=== PATIENT | female | born 1980 | race Caucasian/White ===

== ENCOUNTER 2016-10-27 05:30 | Inpatient (IN) | payer MEDICAID ==
[~2016-10-27] VITALS: Ht 154.9 cm; Wt 71.0 kg
[2016-10-27 05:45] VITALS: Ht 154.9 cm; Wt 71.0 kg
[2016-10-27] MEDS ORDERED: PRENAT PO (05:45)
[2016-10-27 05:46] VITALS: BP 112/71; PULSE 63; RESP 18
[2016-10-27] MEDS ORDERED: MISOPROSTOL 200 MCG TAB PR PRN ×2 (06:00→13:00)
[2016-10-27] MEDS ORDERED: CEFAZOLIN 2 GM/50 ML (PMX) 50 ML IV SCH (06:00)
[2016-10-27] MEDS ORDERED: OXYTOCIN 30 UNITS/LR 500 ML IV PRN ×2 (06:00→13:00)
[2016-10-27] MEDS ORDERED: OXYTOCIN 30 UNITS/LR 500 ML IV SCH (06:00)
[2016-10-27] MEDS ORDERED: METHYLERGONOVINE 0.2 MG INJ IM PRN ×2 (06:00→13:00)
[2016-10-27] MEDS ORDERED: CARBOPROST 250 MCG INJ IM PRN ×2 (06:00→13:00)
[2016-10-27] MEDS: LACTATED RINGER'S 1,000 ML IV SCH ×2 (06:08→07:58)
[2016-10-27 06:23] LABS: ADD SCAN DIFF NO
[2016-10-27 06:29] LABS: BASOPHIL # 0.1 10^3/ul (0.0-0.1); BASOPHILS % 0.5 % (0.0-2.0); EOSINOPHILS # 0.9 10^3/ul (0.0-0.5); EOSINOPHILS % 9.6 % (0.0-7.0); HEMATOCRIT 39.2 % (37.0-47.0); LYMPHOCYTES # 2.3 10^3/ul (0.8-2.9); MEAN CORPUSCULAR HEMOGLOBIN 32.6 pg (29.0-33.0); MEAN CORPUSCULAR HGB CONC 35.7 g/dl (32.0-37.0); MEAN CORPUSCULAR VOLUME 91.4 fl (82.0-101.0); MEAN PLATELET VOLUME 10.8 fl (7.4-10.4); MONOCYTE # 0.7 10^3/ul (0.3-0.9); MONOCYTES % 7.1 % (0.0-11.0); NEUTROPHIL # 5.6 10^3/ul (1.6-7.5); NEUTROPHILS % 58.3 % (39.0-77.0); PLATELET COUNT 182 10^3/UL (140-415); RED BLOOD COUNT 4.29 10^6/ul (4.20-5.40); RED CELL DISTRIBUTION WIDTH 13.5 % (11.5-14.5); WHITE BLOOD COUNT 9.6 10^3/ul (4.8-10.8)
[2016-10-27] MEDS ORDERED: OXYTOCIN 30 UNITS/LR 500 ML BAG IV ONE (07:00)
[2016-10-27 07:15] LABS: INR 0.88; PROTIME 11.9 Sec (12.2-14.2); PT RATIO 0.9
[2016-10-27 07:16] LABS: PARTIAL THROMBOPLASTIN TIME 24.9 Sec (25.0-35.0)
[2016-10-27] MEDS ORDERED: morphine SULFATE/PF (10 MG/10 ML) INJ ONE (08:06)
[2016-10-27] MEDS ORDERED: PHENYLephrine (100 MCG/ML) 5ML SYG ONE (08:14)
[2016-10-27] MEDS ORDERED: EPHEDrine SULFATE 50 MG/5 ML SYG ONE (08:18)
--- NOTE | 2016-10-27 08:20 | HP ---
Date/Time of Note Date/Time of Note DATE: 10/27/16 TIME: 08:11 OB - History Hx of Present Free Text/Dictation 36 years old female 5 para 3 history of 2 previous normal delivery 1 section EDC November 03, 2016 admitted to [facility] at 39 weeks gestation for repeat section patient had requested voluntary sterilization bilateral tubal ligation at the time of section she has been counseled regarding the failure rate of this procedure increased risk of ectopic future failure to conceive also the complication of the has been discussed with the patient including but not limited to bowel and bladder injury infection hemorrhage wound hematoma she would like to proceed with the operation Chief Complaint: 39 weeks history of previous request for BTL Estimated Due Date: Nov 03, 2016 : 5 Para: 3 Spontaneous : 1 Care: Limited Care Ultrasounds: Normal mid trimester US Obstetrical Complications: None Medical Complications: None Past Family/Social History * Past Medical, Surgical, Family and Obstetric Histories reviewed from chart. Rubella: immune RPR/VDRL: Negative GBS Status: Negative HBsAG: Negative OB Admission Exam Vital Signs Vital Signs Vital Signs Date Time Temp Pulse Resp B/P Pulse Ox O2 Delivery O2 Flow Rate FiO2 10/27/16 05:46 98.2 63 18 112/71 Room Air Physical Exam HEENT: WNL Heart: Rhythm Normal Lungs: Clear, Equal Abdomen: WNL Extremities: Normal Reflexes: Normal Cervical Dilatation: None Heart Rate: 130's Accelerations: Accelerations Present Decelerations: No Decelerations Varibility: Moderate Last 72 hours Lab Results CBC & BMP 10/27/16 06:00 OB Assessment/Plan Reason for admission: other (Repeat bilateral tubal ligation) Plan: Other (Repeat bilateral tubal ligation) JOAN PAYAN MD Oct 27, 2016 08:20
[2016-10-27] MEDS ORDERED: FENTAnyl 50 MCG/ML VIAL IV PRN ×2 (09:00)
[2016-10-27] MEDS ORDERED: MEPERIDINE 25 MG INJ IV PRN (09:00)
[2016-10-27] MEDS ORDERED: KETOROLAC 30 MG INJ IV ONE (09:00)
[2016-10-27] MEDS ORDERED: NALOXONE (0.4 MG/ML) INJ IV PRN (09:00)
[2016-10-27] MEDS ORDERED: HYDROmorphONE 1 MG/ML SYG IV PRN ×2 (09:00)
[2016-10-27] MEDS ORDERED: ONDANSETRON 4 MG INJ IV PRN ×2 (09:00)
[2016-10-27] MEDS ORDERED: DIPHENHYDRAMINE 50 MG INJ IV PRN ×2 (09:00)
[2016-10-27] MEDS ORDERED: METOCLOPRAMIDE 10 MG INJ IV PRN (09:00)
[2016-10-27] MEDS ORDERED: PROCHLORPERAZINE 10 MG INJ IV PRN (09:00)
[2016-10-27] MEDS ORDERED: HYDROmorphONE (0.2 MG/ML) 10ML SYG IV PRN ×3 (09:00)
[2016-10-27] MEDS ORDERED: ONDANSETRON 4 MG INJ ONE (09:03)
[2016-10-27 12:48] VITALS: BP 121/77; PULSE 90; RESP 20
--- NOTE | 2016-10-27 12:55 | OPR ---
Operative Report Planned Procedure Free Text/Dictation Preop diagnosis repeat request for voluntary sterilization bilateral tubal ligation Postop diagnosis the same Procedure date Oct 27, 2016 Procedure(s) Repeat bilateral tubal ligation Performed by: JOAN PAYAN MD Assisting provider: JERSON ASHLEY MD Anesthesiologist: RAFFAELE DWYER Pre-procedure diagnosis 39 weeks previous C-sections request for tubal ligation Anesthesia Type: spinal Procedure Description Under satisfactory spinal anesthesia, the patient was prepped and draped and placed in supine position, tilted to the left. Pfannenstiel incision was made, carried through the subcutaneous tissue. Bleeders brought under control with electrocautery. Fascia incised to the length of the incision. Rectus muscles from the fascia, divided in midline. Peritoneum exposed, entered through a transverse incision. Exploration of abdomen revealed gravid uterus. Normal-appearing tubes and ovaries bladder flap was developed. Transverse incision was made in the lower segment of the uterus. Amniotic sac ruptured. clear amniotic fluid noted live baby girl was delivered from LOP position, Nasal oropharyngeal suction was performed. The baby was handed to the team for immediate attention. The placenta was delivered manually intact. Uterine cavity was cleaned with wet sponge and drainage established. Uterus closed in 2 layers using [] Monocryl 1 in continuous fashion bilateral tubal ligation performed by identifying the fimbria and ampullar section of the right fallopian tube suture material used number 0 plain catgut which was reinforced with the same suture material that portion of the tube was excised cut end of the tube was cauterized the same procedure performed for the opposite side and specimen submitted. To the pathology, peritoneal cavity irrigated with warm saline. Sponge, needle and instrument count reported to be correct. Abdominal peritoneum closed with 2-0 chromic catgut continuously. Rectus muscle approximated with interrupted 2-0 chromic catgut fascia closed with #1 PDS subcutaneous tissue approximated and sutured with interrupted 2-0 chromic catgut , skin closed with kenny. Estimated blood loss 600 mL. Urine bag contained [ 200]mL of clear urine. Post-Procedure Findings: Live Baby girl [], Apgars 9 [] and [9], weight [], position [cephalic], [vertex ] presentation [no nuchal cord]cord. Specimen removed: No Complications: None Pt Condition post procedure: stable Physician Certification I, the undersigned physician, hereby certify that I have discussed the procedure described in this consent form with this patient (or the patient's legal education courses sales representative), including: * The risk and benefits of the procedure; * Any adverse reactions that may reasonably be expected to occur; * Any alternative efficacious methods of treatment which may be medically viable ; * The potential problems that may occur during recuperation; * Potential for blood transfusion and associated risks/benefits; and * Any research or economic interest I may have regarding this treatment. I further certify that the patient/legally responsible person was encouraged to ask question and that all questions were answered. JOAN PAYAN MD Oct 27, 2016 12:49
[2016-10-27] MEDS ORDERED: ACETAMINOPHEN/CODEINE #3 TAB PO PRN ×2 (13:00)
[2016-10-27] MEDS ORDERED: CEFAZOLIN 1 GM/50 ML (PMX) 50 ML IVPB SCH (13:00)
[2016-10-27] MEDS ORDERED: LANOLIN 7 GM TUBE TOP PRN (13:00)
[2016-10-27] MEDS: OXYTOCIN 30 UNITS/LR 500 ML IV SCH ×2 (14:11→20:24)
[2016-10-27 15:14] VITALS: BP 134/84; PULSE 69; RESP 20
[2016-10-27] MEDS: KETOROLAC 30 MG INJ IV PRN (17:25)
[2016-10-27 20:15] VITALS: BP 119/59; PULSE 73; RESP 73
[2016-10-28] MEDS: KETOROLAC 30 MG INJ IV PRN ×2 (00:19→07:32)
[2016-10-28] MEDS: LACTATED RINGER'S 1,000 ML IV SCH ×2 (00:20→07:33)
[2016-10-28 00:30] VITALS: BP 112/67; PULSE 76; RESP 18
[2016-10-28] MEDS: OXYTOCIN 30 UNITS/LR 500 ML IV SCH ×3 (00:53→04:53)
[2016-10-28 03:45] VITALS: BP 106/69; PULSE 80; RESP 19
[2016-10-28] MEDS: IBUPROFEN 600 MG TAB PO SCH ×4 (05:57→23:32)
[2016-10-28 08:24] LABS: ADD SCAN DIFF NO
[2016-10-28 08:37] LABS: BASOPHIL # 0.1 10^3/ul (0.0-0.1); BASOPHILS % 0.4 % (0.0-2.0); EOSINOPHILS # 0.9 10^3/ul (0.0-0.5); EOSINOPHILS % 7.4 % (0.0-7.0); HEMATOCRIT 32.6 % (37.0-47.0); HEMOGLOBIN 11.2 g/dl (12.0-16.0); LYMPHOCYTES # 1.4 10^3/ul (0.8-2.9); LYMPHOCYTES % 11.8 % (15.0-51.0); MEAN CORPUSCULAR HGB CONC 34.4 g/dl (32.0-37.0); MEAN CORPUSCULAR VOLUME 93.1 fl (82.0-101.0); MEAN PLATELET VOLUME 10.5 fl (7.4-10.4); MONOCYTE # 0.6 10^3/ul (0.3-0.9); MONOCYTES % 5.2 % (0.0-11.0); NEUTROPHIL # 9.1 10^3/ul (1.6-7.5); NEUTROPHILS % 74.8 % (39.0-77.0); PLATELET COUNT 164 10^3/UL (140-415); RED CELL DISTRIBUTION WIDTH 13.8 % (11.5-14.5); WHITE BLOOD COUNT 12.1 10^3/ul (4.8-10.8)
[2016-10-28] MEDS: SENNA/DOCUSATE NA (8.6MG/50MG) TAB PO SCH ×2 (08:50→21:00)
--- NOTE | 2016-10-28 09:01 | PN ---
Date/Time of Note Date/Time of Note DATE: 10/28/16 TIME: 09:00 OB Subjective Subjective Subjective Post day 1 Afebrile vital signs stable abdomen soft bowel sounds lochia extremity normal ambulation encouraged Laboratory Tests Test 10/28/16 08:00 White Blood Count 12.110^3/ul Red Blood Count 3.5010^6/ul Hemoglobin 11.2g/dl Hematocrit 32.6% Mean Corpuscular Volume 93.1fl Mean Corpuscular Hemoglobin 32.0pg Mean Corpuscular Hemoglobin Concent 34.4g/dl Red Cell Distribution Width 13.8% Platelet Count 65144^3/UL Mean Platelet Volume 10.5fl Neutrophils % 74.8% Lymphocytes % 11.8% Monocytes % 5.2% Eosinophils % 7.4% Basophils % 0.4% Nucleated Red Blood Cells % 0.0/100WBC Neutrophils # 9.110^3/ul Lymphocytes # 1.410^3/ul Monocytes # 0.610^3/ul Eosinophils # 0.910^3/ul Basophils # 0.110^3/ul Nucleated Red Blood Cells # 0.010^3/ul Current Medications Medications (Trade) Dose Ordered Sig/Cesar Route PRN Reason Start Time Stop Time Status Last Admin Dose Admin Lactated Ringer's 1,000 ml @ 125 mls/hr Q8H IV 10/27/16 05:47 10/27/16 12:56 DC 10/27/16 07:58 Cefazolin Sodium/ Dextrose 50 ml @ 100 mls/hr ONCE IV 10/27/16 06:00 10/27/16 12:56 DC Oxytocin/Lactated Ringer's 500 ml @ 125 mls/hr ONCE IV 10/27/16 06:00 10/27/16 12:56 DC 10/27/16 10:05 Oxytocin/Lactated Ringer's 500 ml @ 0 mls/hr ONCE PRN IV For Hemorrhage Management 10/27/16 06:00 10/27/16 12:56 DC Methylergonovine Maleate (Methergine) 0.2 mg ONCE PRN IM VAGINAL BLEEDING 10/27/16 06:00 10/27/16 12:56 DC Carboprost Tromethamine (Hemabate) 250 mcg ONCE PRN IM VAGINAL BLEEDING 10/27/16 06:00 10/27/16 12:56 DC Misoprostol (Cytotec) 1,000 mcg ONCE PRN [place] VAGINAL BLEEDING 10/27/16 06:00 10/27/16 12:56 DC Morphine Sulfate (Duramorph) 10 mg STK-MED ONCE .ROUTE 10/27/16 08:06 10/27/16 08:07 DC Phenylephrine HCl (Mike-Synephrine Inj Syg) 500 mcg STK-MED ONCE .ROUTE 10/27/16 08:14 10/27/16 08:15 DC Ephedrine Sulfate 50 mg STK-MED ONCE .ROUTE 10/27/16 08:18 10/27/16 08:19 DC Naloxone HCl (Narcan) 0.1 mg Q2M PRN IV FOR RESP RATE 8 OR LESS 10/27/16 09:00 10/28/16 08:59 DC Ketorolac Tromethamine (Toradol) 30 mg Q6H PRN IV PAIN 10/27/16 09:00 10/28/16 08:59 DC 10/28/16 07:32 Hydromorphone HCl (Dilaudid) 0.2 mg Q3H PRN IV PAIN LEVEL 1-5 10/27/16 09:00 10/28/16 08:59 DC Hydromorphone HCl (Dilaudid) 0.4 mg Q3H PRN IV PAIN LEVEL 6-10 10/27/16 09:00 10/28/16 08:59 DC 10/27/16 13:10 Diphenhydramine HCl (Benadryl) 25 mg Q6H PRN IV ITCHING 10/27/16 09:00 10/28/16 08:59 DC Ondansetron HCl (Zofran Inj) 4 mg Q6H PRN IV NAUSEA AND/OR VOMITING 10/27/16 09:00 10/28/16 08:59 DC Prochlorperazine (Compazine Inj) 10 mg ONCE PRN IV NAUSEA AND/OR VOMITING 10/27/16 09:00 10/28/16 08:59 DC Hydromorphone HCl (Dilaudid (Rec)) 0.2 mg PACU ORDER PRN IV MILD PAIN LEVEL 1-3 10/27/16 09:00 10/27/16 12:11 DC Hydromorphone HCl (Dilaudid (Rec)) 0.4 mg PACU ORDER PRN IV MODERATE PAIN LEVEL 4-6 10/27/16 09:00 10/27/16 12:11 DC Hydromorphone HCl (Dilaudid (Rec)) 0.6 mg PACU ORDER PRN IV SEVERE PAIN LEVEL 7-10 10/27/16 09:00 10/27/16 12:11 DC Fentanyl (Sublimaze) 25 mcg PACU ORDER PRN IV MILD PAIN LEVEL 1-3 10/27/16 09:00 10/27/16 12:11 DC Fentanyl (Sublimaze) 50 mcg PACU ODER PRN IV MODERATE PAIN LEVEL 4-6 10/27/16 09:00 10/27/16 12:11 DC Ketorolac Tromethamine (Toradol) 30 mg PACU ORDER ONCE IV 10/27/16 09:00 10/27/16 09:01 DC 10/27/16 09:59 Ondansetron HCl (Zofran Inj) 4 mg PACU ORDER PRN IV NAUSEA AND/OR VOMITING 10/27/16 09:00 10/27/16 12:11 DC Metoclopramide HCl (Reglan) 10 mg PACU ORDER PRN IV NAUSEA AND/OR VOMITING 10/27/16 09:00 10/27/16 12:11 DC Meperidine HCl (Demerol) 25 mg PACU ORDER PRN IV POST-OP RIGORS 10/27/16 09:00 10/27/16 12:11 DC Diphenhydramine HCl (Benadryl) 25 mg PACU ORDER PRN IV PRURITUS 10/27/16 09:00 10/27/16 12:11 DC Ondansetron HCl (Zofran Inj) 4 mg STK-MED ONCE .ROUTE 10/27/16 09:03 10/27/16 09:04 DC Acetaminophen/ Codeine Phosphate (Tylenol No.3) 1 tab Q4H PRN PO PAIN LEVEL 4-6 10/27/16 13:00 Acetaminophen/ Codeine Phosphate (Tylenol No.3) 2 tab Q4H PRN PO PAIN LEVEL 7-10 10/27/16 13:00 Oxycodone/ Acetaminophen (Percocet (5/ 325)) 1 tab Q4H PRN PO PAIN LEVEL 4-6 10/27/16 13:00 Oxycodone/ Acetaminophen (Percocet (5/ 325)) 2 tab Q4H PRN PO PAIN LEVEL 7-10 10/27/16 13:00 Ibuprofen (Motrin) 600 mg Q6 PO 10/28/16 06:00 Simethicone (Mylicon) 160 mg Q8H PRN PO DISTENSION/GAS/BLOATING 10/27/16 13:00 10/28/16 07:32 Senna/Docusate Sodium (Senokot-S) 1 tab BID PO 10/28/16 09:00 10/28/16 08:50 Lanolin (Kbe-J-Ajvbbr) 1 applic BEDSIDE MEDICATION PRN TOP BEDSIDE FOR DARIUS TO NIPPLES 10/27/16 13:00 Diphtheria/ Tetanus/Acell Pertussis 0.5 ml 0.5 ml ONCE ONCE IM* 10/30/16 09:00 10/30/16 09:01 Oxytocin/Lactated Ringer's 500 ml @ 0 mls/hr ONCE PRN IV For Hemorrhage Management 10/27/16 13:00 Methylergonovine Maleate (Methergine) 0.2 mg ONCE PRN IM VAGINAL BLEEDING 10/27/16 13:00 Carboprost Tromethamine (Hemabate) 250 mcg ONCE PRN IM VAGINAL BLEEDING 10/27/16 13:00 Misoprostol 1000 mcg 1,000 mcg ONCE PRN [place] VAGINAL BLEEDING 10/27/16 13:00 Cefazolin Sodium 50 ml @ 100 mls/hr ONCE IVPB 10/27/16 13:00 10/27/16 13:29 DC 10/27/16 14:11 Oxytocin/Lactated Ringer's 500 ml @ 125 mls/hr Q4H IV 10/27/16 12:53 10/27/16 20:24 Lactated Ringer's (Lr) 1,000 ml @ 125 mls/hr Q8H IV 10/28/16 00:30 10/28/16 07:33 JOAN PAYAN MD Oct 28, 2016 09:01
--- NOTE | 2016-10-28 09:06 | CONS ---
Date/Time of Note Date/Time of Note DATE: 10/28/16 TIME: 09:03 Consultation Date/Type/Reason Admit Date/Time Oct 27, 2016 at 05:30 Initial Consult Date 10/28/16 Type of Consultation: Anesthesiology Reason for Consultation Follow up 24 HR Interval Summary Free Text/Dictation Pt seen and examined at bedside is POD#1 s/p C/S. She states her pain is minimal and is currently walking around comfortably. No N/V/D/C/[place]/Numbness in extremities. Pt received a Duramorph spinal for post-op pain control which is working adequately. Will continue to follow. Constitutional: improved, no complaints Exam/Review of Systems Vital Signs Vitals Vital Signs Date Time Temp Pulse Resp B/P Pulse Ox O2 Delivery O2 Flow Rate FiO2 10/28/16 03:45 98.6 80 19 106/69 Room Air Intake and Output 10/27/16 10/27/16 10/28/16 15:00 23:00 07:00 Intake Total 1525 ml 750 ml 250 ml Output Total 1000 ml 500 ml 1400 ml Balance 525 ml 250 ml -1150 ml Results Result Diagram: 10/28/16 0800 Results 24 hrs Laboratory Tests Test 10/28/16 08:00 White Blood Count 12.1 #H Red Blood Count 3.50 L Hemoglobin 11.2 L Hematocrit 32.6 L Mean Corpuscular Volume 93.1 Mean Corpuscular Hemoglobin 32.0 Mean Corpuscular Hemoglobin Concent 34.4 Red Cell Distribution Width 13.8 Platelet Count 164 Mean Platelet Volume 10.5 H Neutrophils % 74.8 Lymphocytes % 11.8 L Monocytes % 5.2 Eosinophils % 7.4 H Basophils % 0.4 Nucleated Red Blood Cells % 0.0 Neutrophils # 9.1 H Lymphocytes # 1.4 Monocytes # 0.6 Eosinophils # 0.9 H Basophils # 0.1 Nucleated Red Blood Cells # 0.0 Medications Medications Current Medications Acetaminophen/ Codeine Phosphate (Tylenol No.3) 1 tab Q4H PRN PO PAIN LEVEL 4-6 ; Start 10/27/16 at 13:00 Acetaminophen/ Codeine Phosphate (Tylenol No.3) 2 tab Q4H PRN PO PAIN LEVEL 7- 10; Start 10/27/16 at 13:00 Oxycodone/ Acetaminophen (Percocet (5/ 325)) 1 tab Q4H PRN PO PAIN LEVEL 4-6; Start 10/27/16 at 13:00 Oxycodone/ Acetaminophen (Percocet (5/ 325)) 2 tab Q4H PRN PO PAIN LEVEL 7-10; Start 10/27/16 at 13:00 Ibuprofen (Motrin) 600 mg Q6 PO ; Start 10/28/16 at 06:00 Simethicone (Mylicon) 160 mg Q8H PRN PO DISTENSION/GAS/BLOATING Last administered on 10/28/16 07:32; Admin Dose 160 MG; Start 10/27/16 at 13:00 Senna/Docusate Sodium (Senokot-S) 1 tab BID PO Last administered on 10/28/16 08:50; Admin Dose 1 TAB; Start 10/28/16 at 09:00 Diphtheria/ Tetanus/Acell Pertussis 0.5 ml 0.5 ml ONCE ONCE IM* ; Start at 09:00; Stop 10/30/16 at 09:01 Oxytocin/Lactated Ringer's 500 ml @ 0 mls/hr ONCE PRN IV For Hemorrhage Management; Start 10/27/16 at 13:00 Methylergonovine Maleate (Methergine) 0.2 mg ONCE PRN IM VAGINAL BLEEDING; Start 10/27/16 at 13:00 Carboprost Tromethamine (Hemabate) 250 mcg ONCE PRN IM VAGINAL BLEEDING; Start 10/27/16 at 13:00 Misoprostol 1000 mcg 1,000 mcg ONCE PRN [place] VAGINAL BLEEDING; Start 10/27/16 at 13:00 Oxytocin/Lactated Ringer's 500 ml @ 125 mls/hr Q4H IV Last administered on 20:24; Admin Dose 125 MLS/HR; Start 10/27/16 at 12:53 Lactated Ringer's (Lr) 1,000 ml @ 125 mls/hr Q8H IV Last administered on 07:33; Admin Dose 125 MLS/HR; Start 10/28/16 at 00:30 RAFFAELE DWYER Oct 28, 2016 09:05
[2016-10-28 09:26] VITALS: BP 121/61; PULSE 80; RESP 20
[2016-10-28] MEDS: OXYCODONE/ACETAMINOPHEN (5/325) TAB PO PRN ×2 (12:04→21:46)
[2016-10-28 12:07] VITALS: BP 104/59; PULSE 81; RESP 20
[2016-10-28 15:25] VITALS: BP 101/62; PULSE 64; RESP 18
[2016-10-28 20:00] VITALS: BP 108/71; PULSE 72; RESP 18
[2016-10-29] MEDS: OXYCODONE/ACETAMINOPHEN (5/325) TAB PO PRN ×3 (03:28→15:36)
[2016-10-29 04:00] VITALS: BP 118/69; PULSE 75; RESP 18
[2016-10-29] MEDS: IBUPROFEN 600 MG TAB PO SCH ×4 (05:43→23:31)
[2016-10-29 08:33] VITALS: BP 117/65; PULSE 61
[2016-10-29] MEDS: SENNA/DOCUSATE NA (8.6MG/50MG) TAB PO SCH ×2 (09:14→21:07)
--- NOTE | 2016-10-29 12:22 | PN ---
Date/Time of Note Date/Time of Note DATE: 10/29/16 TIME: 12:20 OB Subjective Subjective Subjective Repeat day 2 vital signs stable Abdomen soft uterus firm incision dry bowel sounds present had bowel movement plan of a.m. discharge discussed with the patient, JOAN PAYAN MD Oct 29, 2016 12:22
[2016-10-29 12:31] VITALS: BP 126/63; RESP 20
[2016-10-29 17:39] VITALS: BP 111/62; PULSE 64; RESP 20
[2016-10-29 20:00] VITALS: BP 120/64; PULSE 70; RESP 18
[2016-10-30 04:25] VITALS: BP 122/70; PULSE 72; RESP 20
[2016-10-30] MEDS: IBUPROFEN 600 MG TAB PO SCH ×3 (05:31→17:45)
[2016-10-30] MEDS ORDERED: DIPHTH/TET/ACEL PERTUSS (ADULT) 0.5 ML VIAL IM* ONE (09:00)
[2016-10-30] MEDS: SENNA/DOCUSATE NA (8.6MG/50MG) TAB PO SCH (10:07)
--- NOTE | 2016-10-30 10:12 | PD.PPDC ---
[employer] Discharge Instruction Condition Patient Condition: Good Diet Diet: Resume Regular Diet Activity/Restrictions Activity: Normal Activity May Shower Restrictions: No Exercising No Lifting No Driving No Sexual Activity Nothing in the Vagina No [place] No Tampons, douche Wound/Drain Care Instructions Wound/Drain Care Instructions: Remove Steri Strips in 1 week Follow-up Follow-up with Physician: Day/Days Provider Information: Appointment clinic in 4 days to discontinue kenny patient received instructions Return to clinic for RESPIRATORY SCIENTIST Instructions: Fever greater than 101 Chills Worsening abdominal pain Excessive Vaginal Bleeding More than 2 pads per hour Unable to tolerate diet OB Instructions: Breast Tenderness Depression Blurried Vision Headache Surgical Instructions: Incisional Drainage Incisional Redness JOAN PAYAN MD Oct 30, 2016 10:12
--- NOTE | 2016-10-30 10:14 | DS ---
Date/Time of Note Date/Time of Note DATE: 10/30/16 TIME: 10:13 Discharge Summary Admission/Discharge Info Admit Date/Time Oct 27, 2016 at 05:30 Discharge Date/Time October 30, 2016 at 10:10 AM Discharge Diagnosis Date 3 post repeat bilateral tubal ligation Patient Condition: Good Procedures Repeat bilateral tubal ligation Hospital Course Satisfactory uneventful Home Meds Reported Medications Multivit/Min/Fol Ac/Iron/Pren* ( S*) 1 Tab Tab, 1 TAB PO DAILY, TAB 10/27/16 Follow-up Plan Appointment clinic in 4 days to discontinue kenny also patient received home wound care and follow-up instructions Primary Care Provider Care Physician No Primary Time spent on discharge: < 30 minutes JOAN PAYAN MD Oct 30, 2016 10:14
--- NOTE | 2016-10-30 10:16 | DS ---
Date/Time of Note Date/Time of Note DATE: 10/30/16 TIME: 10:15 Discharge Summary Admission/Discharge Info Admit Date/Time Oct 27, 2016 at 05:30 Discharge Date/Time October 30, 2016 at 10:10 AM Discharge Diagnosis Date 3 post repeat bilateral tubal ligation Patient Condition: Good Procedures Repeat bilateral tubal ligation Hx of Present Illness Term history of previous request for bilateral tubal ligation Hospital Course Satisfactory uneventful Home Meds Reported Medications Multivit/Min/Fol Ac/Iron/Pren* ( S*) 1 Tab Tab, 1 TAB PO DAILY, TAB 10/27/16 Follow-up Plan Appointment clinic in 4 days to discontinue kenny Primary Care Provider Care Physician No Primary Time spent on discharge: < 30 minutes JOAN PAYAN MD Oct 30, 2016 10:16
[2016-10-30 15:40] VITALS: BP 111/75; PULSE 65; RESP 18
== END 2016-10-30 18:20 | disposition home or self-care (01) | DRG 766 ==
LOC: L-D 05:30 → PP1 12:09
PROVIDERS: ADMIT Obstetrics & Gynecology; ATTEND Obstetrics & Gynecology
PROC: 0UB70ZZ Excision of Bilateral Fallopian Tubes, Open Approach (ICD-10-PCS; 2016-10-27)
PROC: 10D00Z1 Extraction of Products of Conception, Low, Open Approach (ICD-10-PCS; principal; 2016-10-27 07:30)
PROC: 3E0234Z Introduction of Serum, Toxoid and Vaccine into Muscle, Percutaneous Approach (ICD-10-PCS; 2016-10-30)
DX: O34.219 Maternal care for unspecified type scar from previous cesarean delivery (principal); Z3A.39 39 weeks gestation of pregnancy; Z37.0 Single live birth; Z30.2 Encounter for sterilization; Z23 Encounter for immunization
CPT/HCPCS: 85025; 85610; 85730; 86592; 86850; 86900; 86901; 88302; 90715; 99464; J0690; J1170; J1885; J2274; J2370; J2405; J2590; J7120